=== PATIENT | male | born 1960 | race Hispanic/Latino ===

== ENCOUNTER → 2025-02-12 11:47 | Outpatient (CLI) | payer MEDICARE, SELFPAY ==
--- NOTE | ~2025-02-12 | XR_ITS ---
3 VIEWS LUMBAR SPINE Ordering provider: Eliot Ngo MD History: . LOW BACK PAIN/NO KNOWN TRAUMA . Pelvic Comparison: None. FINDINGS: VERTEBRAL BODIES:Compression fracture of T11 and T12 most likely chronic. No visible acute fracture or subluxation. DISK SPACES: Normal. SOFT TISSUES: Normal. Bilateral moderate osteoarthritic changes. IMPRESSION: No acute osseous abnormality lumbar spine. Compression fracture of T11 and T12 most likely chronic. If clinically suspicious MRI is advised. Reviewed, dictated and finalized at location A. IMPRESSION: No acute osseous abnormality lumbar spine. Compression fracture of T11 and T12 most likely chronic. If clinically suspicio us MRI is advised.
== END ==
PROVIDERS: PCP Emergency Medicine; Visit Provider Emergency Medicine
DX: M54.50 Low back pain, unspecified (principal)
CPT/HCPCS: 72100

== ENCOUNTER 2025-09-05 08:19 | Emergency (ER) | payer MEDICARE, SELFPAY ==
--- NOTE | ~2025-09-05 | XR_ITS ---
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 Findings: No acute fracture or malalignment. No significant degenerative changes. Soft tissues unremarkable. Impression: No acute fracture or malalignment. Reviewed, dictated and finalized at location P. EDICAL REPAIR TECHNICIAN Impression: No acute fracture or malalignment.
--- NOTE | ~2025-09-05 | XR_ITS ---
Examination: XR shoulder RT min 2V Clinical History: anterior pain, fell on ice Comparison: None Technique: 4 views right shoulder Findings/impression: 1. No fracture or dislocation right shoulder. Reviewed, dictated and finalized at location R. ET WORKER
[2025-09-05 08:28] VITALS: BP 165/77; PULSE 59; RESP 16; TEMP 36.4; O2SAT 100
--- NOTE | 2025-09-05 08:39 | ED_ITS ---
HPI - Fall General Chief Complaint: Fall Stated Complaint: fall Time Seen by Provider: 09/05/25 08:39 Source: patient Mode of arrival: ambulatory Limitations: no limitations History of Present Illness HPI Narrative: 64 yo M presents with pain to R shoulder and L side ribs for one day. 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 Denies hitting head. Was able to get up on his own. needs worse note for 2 days off work. Ambulatory with steady gait. All systems reviewed and negative except as noted above. Related Data Allergies Allergy/AdvReac Type Severity Reaction Status Date / Time No Known Allergies Allergy Verified 09/05/25 08:25 [facility] Social History Social History (Updated 02/22/25 @ 08:21 by Ramila Verduzco [facility]) Smoking status: Never smoker Alcohol intake: never Substance use: never Lack of Transportation: No Lack of Food: Never True Current Housing: I Have Housing Concerned About Future Housing: No Difficulty Paying Gas/Electric Bills: No Difficulty Paying for Meds: No Currently Unemployed: No Education: Grade School Difficulty w/ Childcare or Family Care: No Comments At time of signature, agree with nursing past medical, surgical, social and family history. There is no relevant family history pertinent to the presenting complaint. Exam Narrative: GENERAL: This is a well-nourished, well-developed patient, in no apparent distress. HEAD: normocephalic, atraumatic. EYES: PERRL. Sclera clear/white. Vision is grossly intact. EARS: External ears normal NOSE: External nose normal NECK: Neck supple, non-tender without lymphadenopathy, masses or thyromegaly. CARDIOVASCULAR: Regular rate and rhythm without murmurs, gallops, or rubs. RESPIRATORY: Clear to auscultation. Breath sounds equal bilaterally. No wheezes, rales, or rhonchi. SKIN: warm, Dry, intact with no suspicious lesions or rash, good texture and turgor. NEURO: awake, alert, and oriented to person, place and time. There were no obvious focal neurologic abnormalities. EXTREMITIES: generalized tenderness R shoulder, no point tenderness. normal ROM. no bruising and swelling. Tenderness to L lateral ribs. no bruising or deformity. Course Course Level of Care: Express Care Visit Vital Signs Vital signs: Vital Signs Temperature 36.4 C 09/05/25 08:28 Pulse Rate 59 L 09/05/25 08:28 Respiratory Rate 16 09/05/25 08:28 Blood Pressure 165/77 H 09/05/25 08:28 Pulse Oximetry 100 09/05/25 08:28 Oxygen Delivery Room Air 09/05/25 08:28 Temperature 36.4 C 09/05/25 08:28 Pulse Rate 59 L 09/05/25 08:28 Respiratory Rate 16 09/05/25 08:28 Blood Pressure 165/77 H 09/05/25 08:28 Pulse Oximetry 100 09/05/25 08:28 Oxygen Delivery Room Air 09/05/25 08:28 reviewed MDM MDM Narrative Medical decision making narrative: x-ray of ribs And right shoulder negative for fracture. Recommend ibuprofen and. Patient is well-appearing, nontoxic. Will up with primary care physician if pain is not improving. Differential Diagnosis Differential Diagnosis: right shoulder strain, right shoulder sprain, right shoulder fracture, left rib fracture, left rib contusion Imaging Data Radiologist's impression: ITS Impressions Ribs w/Chest X-Ray 09/05/25 09:13 Impression: No acute fracture or malalignment. Discharge Plan Discharge Clinical Impression: Contusion of right shoulder, Contusion of rib on left side, Elevated blood pressure reading Patient Disposition: Home Condition: Stable Instructions: Contusion in Adults (ED) Additional Instructions: The x-rays of your right shoulder and left ribs were negative for fracture. Take ibuprofen as prescribed to treat her pain. Apply ice as needed for pain. Your blood pressure was elevated today. Follow-up with your primary care physician to recheck your blood pressure in 1 week. Patient Language: [place] Prescriptions: New ibuprofen 600 mg tablet 600 mg PO Q6H PRN (Reason: pain) Qty: 30 0RF Follow-up/Referrals: Eliot Ngo MD [Primary Care Provider, Family Practice] - 1 Week Referral Note: Recheck blood pressure in 1 week with your primary care physician Stand Alone Forms: Work/School Release IP Time of Disposition: 09:26
== END 2025-09-05 09:35 | disposition home or self-care (01) ==
PROVIDERS: Emergency Provider Nurse Practitioner Family; PCP Emergency Medicine
DX: S40.011A Contusion of right shoulder, initial encounter (principal); S20.212A Contusion of left front wall of thorax, initial encounter; W00.0XXA Fall on same level due to ice and snow, initial encounter; R03.0 Elevated blood-pressure reading, without diagnosis of hypertension
CPT/HCPCS: 71101; 73030; 99214; G0463